=== PATIENT | male | born 1940 | race Caucasian/White ===

== ENCOUNTER 2020-04-04 15:24 | Inpatient (IN) | payer MEDICARE, OTHER ==
[~2020-04-04] VITALS: Ht 160 cm; Wt 64.5 kg
[2020-04-04 15:49] LABS: BASOPHILS ABSOLUTE AUTO 0.05 K/mm3 (0.00-0.23); BASOPHILS PERCENT AUTO 0 % (0-2); EOSINOPHILS ABSOLUTE AUTO 0.04 K/mm3 (0.00-0.68); EOSINOPHILS PERCENT AUTO 0 % (0-6); Hematocrit 39.1 % (37.0-53.0); Hemoglobin 12.9 g/dL (13.5-17.5); IMMATURE GRAN ABSOLUTE AUTO 0.13 K/mm3 (0.00-0.10); IMMATURE GRAN PERCENT AUTO 1 % (0-1); LYMPHOCYTES ABSOLUTE AUTO 0.83 K/mm3 (0.84-5.20); LYMPHOCYTES PERCENT AUTO 5 % (21-46); MONOCYTES ABSOLUTE AUTO 1.18 K/mm3 (0.16-1.47); MONOCYTES PERCENT AUTO 7 % (4-13); Mean Corpuscular HGB 32.7 pg (26.0-34.0); Mean Corpuscular Volume 99 fL (80-100); Mean Platelet Volume 10.9 fL (9.1-12.4); NEUTROPHILS ABSOLUTE AUTO 15.22 K/mm3 (1.96-9.15); NEUTROPHILS PERCENT AUTO 87 % (41-73); Platelet Count 370 K/mm3 (150-400); RDW Coefficient Variation 13.2 % (11.7-14.2); RDW Standard Deviation 47.6 fL (35.1-46.3); Red Blood Cell Count 3.94 M/mm3 (4.30-5.90); White Blood Cell Count 17.45 K/mm3 (4.00-11.30)
[2020-04-04 16:14] LABS: Alanine Aminotransfer (ALT/SGP 33 U/L (12-78); Albumin, Blood 2.4 g/dL (3.4-5.0); Albumin/Globulin Ratio 0.5 (0.8-1.8); Alk Phos 168 U/L (50-136); Anion Gap 9 mmol/L (6-16); Aspartate Aminotrans (AST/SGOT 126 U/L (12-37); Bilirubin, Total 1.2 mg/dL (0.1-1.0); Blood Urea Nitrogen 11 mg/dL (8-24); Bun/Creatinine Ratio 12.5 (12.0-20.0); CO2, Blood 22 mmol/L (21-32); Calcium, Blood 8.2 mg/dL (8.5-10.1); Chloride, Blood 101 mmol/L (98-108); Creatinine, Blood 0.88 mg/dL (0.60-1.20); Glomerular Filtration Rate >60 (60-); Glucose, Blood 130 mg/dL (70-99); Potassium, Blood 4.3 mmol/L (3.5-5.5); Sodium, Blood 132 mmol/L (136-145); Total Protein, Blood 7.4 g/dL (6.4-8.2)
[2020-04-04] MEDS ORDERED: IBUP200 PO (16:52)
[2020-04-04 19:54] LABS: International Normalized Ratio 1.09; Prothrombin Time Results 11.6 Sec (9.7-11.5)
[2020-04-04 19:57] LABS: CPK Creatine Kinase 296 U/L (39-308)
--- NOTE | 2020-04-04 21:30 | NUR ---
PT ADMITTED TO ROOM ICU 13 AT 2026. PT SLIDE TRANSFERRED TO BED FROM [facility]. PT HAS NO COMPLAINTS OF CHEST PAIN OR PRESSURE. DOES HAVE TACHYPNEIC RESPIRATIONS. OXYGEN ON AT 4 L/M. MAINTAINS > 90 PERCENT SATURATIONS. PT HAS MOIST COUGH AND WAS PROVIDED YAUNKEUR TO HELP SELF CLEAR. PT BEGINS ON HEPARIN DRIP PER PHARMACY. TEACHING DONE. WILL REVIEW CHART AND PLAN OF CARE FOR THIS PT.
[2020-04-05 03:34] LABS: BASOPHILS ABSOLUTE AUTO 0.05 K/mm3 (0.00-0.23); BASOPHILS PERCENT AUTO 0 % (0-2); EOSINOPHILS ABSOLUTE AUTO 0.06 K/mm3 (0.00-0.68); EOSINOPHILS PERCENT AUTO 0 % (0-6); Hematocrit 37.1 % (37.0-53.0); IMMATURE GRAN ABSOLUTE AUTO 0.12 K/mm3 (0.00-0.10); IMMATURE GRAN PERCENT AUTO 1 % (0-1); LYMPHOCYTES ABSOLUTE AUTO 1.35 K/mm3 (0.84-5.20); LYMPHOCYTES PERCENT AUTO 9 % (21-46); MONOCYTES PERCENT AUTO 8 % (4-13); Mean Corpuscular HGB Conc 32.3 g/dL (31.5-36.5); Mean Corpuscular Volume 99 fL (80-100); Mean Platelet Volume 10.7 fL (9.1-12.4); NEUTROPHILS ABSOLUTE AUTO 12.02 K/mm3 (1.96-9.15); NEUTROPHILS PERCENT AUTO 81 % (41-73); Platelet Count 298 K/mm3 (150-400); RDW Coefficient Variation 13.2 % (11.7-14.2); RDW Standard Deviation 47.4 fL (35.1-46.3); Red Blood Cell Count 3.75 M/mm3 (4.30-5.90)
[2020-04-05 03:54] LABS: Alanine Aminotransfer (ALT/SGP 34 U/L (12-78); Albumin, Blood 2.3 g/dL (3.4-5.0); Albumin/Globulin Ratio 0.5 (0.8-1.8); Alk Phos 157 U/L (50-136); Anion Gap 9 mmol/L (6-16); Aspartate Aminotrans (AST/SGOT 111 U/L (12-37); Blood Urea Nitrogen 13 mg/dL (8-24); Bun/Creatinine Ratio 12.7 (12.0-20.0); CO2, Blood 25 mmol/L (21-32); Calcium, Blood 8.2 mg/dL (8.5-10.1); Chloride, Blood 103 mmol/L (98-108); Creatinine, Blood 1.02 mg/dL (0.60-1.20); Globulin, Blood 4.5 g/dL (2.2-4.0); Glomerular Filtration Rate >60 (60-); Glucose, Blood 108 mg/dL (70-99); Potassium, Blood 3.8 mmol/L (3.5-5.5); Sodium, Blood 137 mmol/L (136-145); Total Protein, Blood 6.8 g/dL (6.4-8.2)
[2020-04-05 04:48] LABS: Troponin I 15.4 ng/mL (0.000-0.040)
--- NOTE | 2020-04-05 06:21 | NUR ---
PT CONTINUES WITHOUT COMPLAINTS OF CHEST PAIN OR PRESSURE. MAINTAINS > 90 PERCENT SATURATIONS ON 4 L/M. PT ABLE TO SELF CLEAR SECRETIONS WITH COUGH AND YAUNKEUR. PT DOES STATE THAT HE WAS HAVING VIVID 'VISIONS' WHEN HE CLOSED HIS EYES. THIS BEING OF A WATERWAY THAT HAD URIAS. PT STATES THAT HE HAS NEVER HAD THIS BEFORE. DENIES THAT IT CAUSED HIM TO BE AFRAID. HE CLAIMS THIS WAS VERY RELAXING. PT CONTINUES ON HEPARIN DRIP. NO S/S BLEEDING. WILL CONTINUE TO MONITOR PT AND WILL REPORT OFF TO ONCOMING RN.
--- NOTE | 2020-04-05 08:00 | NUR ---
ASSUMED CARE OF PT AT 0700. DURING SHIFT CHANGE PT REPORTED NEW 4/10 DULL ACHE TO LEFT CHEST WHEN HE AWOKE THIS MORNING. DR COPELAND WAS NOTIFIED AND EVALED PT AT BEDSIDE. VITALS STABLE AT TIME OF CHESTPAIN, NO ACUTE CHANGES TO MONITOR. SINUS RHYTHM WITH OCCASSIONAL PVC'S. PT REMAINS ON 4L OF O2 VIA NC, DYSPNEA WITH EXERTION. HEPARIN GTT INFUSING PER PHARMACY DOSING.
--- NOTE | 2020-04-05 12:56 | NUR ---
ECHOCARDIOGRAM COMPLETE
--- NOTE | 2020-04-05 16:30 | NUR ---
REASSESSMENT TR BAND FULLY DEFLATED, NO CHANGE IN INITIAL BRUISE TO RIGHT RADIAL SITE. PT CONTINUES TO REPORT NO CHANGE TO DULL CHEST PAIN /10. HEPARIN GTT ON PER PHARMACY DOSING. VITALS HAVE BEEN STABLE. PT REPORTS FEELING DEPRESSED AND "THERE'S NOTHING TO GO HOME TO". PT HAS EXPRESSED TO STAFF THAT IS AND ALCHOLIC AND UNSUPPORTIVE. CASE MANAGEMENT NOTIFIED OF HOME CARE CONCERNS. PT REMAINS ON 4L NC. VITALS HAVE REMAINED STABLE. SINUS RHYTHM ON THE MONITOR.
--- NOTE | 2020-04-05 17:00 | NUR ---
PT HAD 6 BEAT RUN OF V-TACH. PT REPORTED ADDITIONAL CHEST DISCOMFORT WITH RUN. IN ADDITION PT IS HAVING FREQ MULTI FOCAL PVC'S. PT REPORTS CHEST PAIN 3/10, MORE SUBSTERNAL THAN LEFT CHEST CURRENTLY. DR COPELAND NOTIFIED OF CLOTH WIRE WEAVER CHANGES. ORDERS RECEIVED FOR STAT LABS AND MEDS. MONITOR SHOWS SINUS TACH WITH FREQ MULTI FOCAL PVC'S RATE 102. BP AFTER VTACH 105/73.
[2020-04-05 17:30] LABS: Magnesium, Blood 1.3 mg/dL (1.6-2.4)
[2020-04-05 17:38] LABS: Potassium, Blood 2.5 mmol/L (3.5-5.5)
--- NOTE | 2020-04-05 18:31 | NUR ---
SHIFT SUMMARY PT IS ALERT AND ORIENTEDx4, REPORTS FEELING DEPRESSED AND "THERE'S NO REASON TO LIVE ON. I DON'T HAVE A GOOD HOME". PT CONTINUES TO HAVE 2-3 LEFT CHEST PAIN. RECENT LABS SHOWED LOW POTASSIUM AND MAGNESIUM, CURRENTLY BEING REPLACED. MONITOR SHOWS SINUS RHTYHM WITH FREQ MULTI-FOCAL PVC'S. VITALS STABLE. RIGHT RADAIL SITE SOFT/C/D/I, ARM BOARD IN PLACE. PT CONTINUES TO BE ON 4L NC TO MAINTAIN SPO2 >92%. PT INDEPENDANTLY USING URINAL AND APPROPRIATELY DIURISING. VITALS HAVE REMAINED STABLE.
--- NOTE | 2020-04-05 20:00 | NUR ---
ASSUMED CARE OF PT AT 1915. REPORT RECEIVED AT BEDSIDE. PT PRESENTS IN BED. SOMEWHAT ANXIOUS. SELF SUCTIONS SECRETIONS THAT HE EXPECTORATES. CLEAR SECRETIONS NOTED. PT REMAINS ON 4 L/M OXYGEN PER NASAL CANNULA. SATURATIONS 87-91 %. PT CONTINUES WITH VOIDS Q.S. ON DIURETIC THERAPY. NO COMPLAINTS OF CHEST PAIN OR PRESSURE. WILL REVIEW CHART AND PLAN OF CARE FOR THIS PT.
--- NOTE | 2020-04-05 23:44 | NUR ---
TWO PHONE CALLS PLACED TO DR BLAKE FOR PT FEELING VERY RESTLESS, AND ANXIOUS. ONE TIME ATIVAN PO ORDER RECEIVED. FOLLOWUP CALL CONCERNING PERSISTANT COUGH LEADING TO DESATURATIONS IN 804-85 PERCENT. ORDER FOR ROBITUSSIN, AND TESSALON PERRLES. ADMINISTERED 10 ML ROBITUSSIN. THIS HAS GREATLY HELPED WITH COUGH. HAVE ALSO CHANGED PT TO HIGH FLOW CANNULA AT 10 L/M. PT SATURATIONS REMAIN > 90 PERCENT WITH THIS. WILL TITRATE DOWN ABLE. MUCH REASSURANCE GIVEN TO PT. TEACHING DONE ON CARDIAC FINDINGS FROM ANGIOGRAM THIS AM. MEDICATIONS AND DISEASE PROCESS. WILL CONTINUE TO MONITOR PT.
[2020-04-06 02:15] LABS: Anion Gap 8 mmol/L (6-16); Blood Urea Nitrogen 22 mg/dL (8-24); Bun/Creatinine Ratio 19.8 (12.0-20.0); CO2, Blood 24 mmol/L (21-32); Calcium, Blood 7.9 mg/dL (8.5-10.1); Chloride, Blood 108 mmol/L (98-108); Creatinine, Blood 1.11 mg/dL (0.60-1.20); Glomerular Filtration Rate >60 (60-); Glucose, Blood 120 mg/dL (70-99); Potassium, Blood 4.4 mmol/L (3.5-5.5); Sodium, Blood 140 mmol/L (136-145)
--- NOTE | 2020-04-06 06:30 | NUR ---
AFTER PT HAS COUGHING JAG EARLIER IN EVENING, HE REQUIRES HIGHER FLOW OXYGEN. CHANGED PT TO HIGH FLOW NASAL CANNULA. WHEN ASLEEP, PT WOULD DESATURATE INTO MID 80 PERCENTS. FLOW UP TO 10 L/M AFFECTIVE. DID HAVE PT WEAR CPAP FOR A PERIOD DURING NIGHT. PT TOLERATES THIS WELL.
--- NOTE | 2020-04-06 07:50 | NUR ---
ASSUMED CARE RECEIVED REPORT FROM KEREN DORMAN. PT IS SITTING UP IN BED AWAKE, ALERT AND ORIENTED X 4, HOWEVER, STATES HE HAS BEEN SLIGHTLY CONFUSED THIS MORNING - HAVING WEIRD DREAMS AND INITIALLY FORGOT WHERE HE WAS - BUT HAS SINCE REMEMBERED. HE IS ON A HEPARIN GTTP AT 17 UNITS/KG/HOUR WITH 67 KG FOR THE WEIGHT -- THIS WAS VERIFIED WITH THE ORDER AND WITH KEREN DORAMN. PT FAIRLY INDEPENDENT IN BED, REPOSITIONING SELF. HIGH FLOW NC AT 11L WITH SPO2 MID TO HIGH 90s WILL REASSESS NEED FOR OXYGEN WHEN POSSIBLE.
--- NOTE | 2020-04-06 11:29 | NUR ---
UPDATE PT SLEEPING AFTER EATING BREAKFAST. 4L NC, SPO2 LOW TO MID 90s%. VOIDING IN URINAL INDEPENDENTLY. NO MAJOR CHANGES. DAUGHTER CALLED AND WAS CONCERNED ABOUT HER FATHER, PRIMARILY ABOUT HIS DISCHARGE, AND SHE REALLY DOES NOT WANT HIM TO GO HOME WITH HIS (HER MOM). THIS RN SPENT SOME TIME DISCUSSING WITH HER THE NATURE OF HER FATHERS ILLNESS, AND THAT HE WILL NEED MORE TIME IN THE HOSPITAL, BECAUSE HE IS STILL ON OXYGEN, ON A HEPARIN GTTP, RECEIVING IV LASIX WITH CRACKLES REMAINING IN THE LUNGS, AND IS VERY WEAK. IT WAS ALSO DISCUSSED THAT IS IS POSSIBLE HE MAY REQUIRE A SNF UPON DISCHARGE. ALTAGRACIA WAS THANKFUL FOR THAT INFORMATION. 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
--- NOTE | 2020-04-06 19:30 | NUR ---
END OF SHIFT NO MAJOR UPDATES SINCE LAST NOTE. PT IS ON 4L NC, SPO2 96% AND HAS BEEN DENYING SOB AT REST, WITH EXERTION OR LAYING FLAT THE PT DOES BECOME DYSPNEIC, AND SPO2 CAN DROP TO MID ~80s%. HE HAS DENNIED CHEST PAIN ALL DAY. CONTINUES TO COUGH UP THICK, WHITE/CLEAR, AND SOMETIMES PINK TINGED SPUTUM. HAS BEEN ALERT AND ORIENTED X 4 ALL DAY. DID NOT WANNA GET UP IN THE CHAIR TODAY. PT, OT, AND ST WERE ORDERED TODAY. PT IS CONCERNED ABOUT GOING HOME AFTER DISCHARGE. HE REPORTS BEING SCARED TO GO HOME TO HIS . 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 HE IS VERY WEAK AND WILL MOST LIKELY REQUIRE A LOT OF PHYSICAL THERAPY. THIS WAS PASSED ON TO THE NOC RN TO REPORT TO THE DAY RN TOMORROW AND/OR PALLIATIVE CARE (WHICH WAS CONSULTED THIS AM). THE DAUGHTER CALLED TODAY, AND AFTER BEING UPDATED REPORTED THAT THIS WAS A BIG CONCERN FOR HER, WELL HER BROTHER AND DAD. BED IS LOW AND LOCKED. CALL LIGHT WITHIN REACH.
[2020-04-07 05:08] LABS: BASOPHILS ABSOLUTE AUTO 0.07 K/mm3 (0.00-0.23); BASOPHILS PERCENT AUTO 1 % (0-2); EOSINOPHILS ABSOLUTE AUTO 0.41 K/mm3 (0.00-0.68); EOSINOPHILS PERCENT AUTO 3 % (0-6); Hematocrit 35.8 % (37.0-53.0); Hemoglobin 11.7 g/dL (13.5-17.5); IMMATURE GRAN ABSOLUTE AUTO 0.17 K/mm3 (0.00-0.10); IMMATURE GRAN PERCENT AUTO 1 % (0-1); LYMPHOCYTES ABSOLUTE AUTO 1.75 K/mm3 (0.84-5.20); LYMPHOCYTES PERCENT AUTO 12 % (21-46); MONOCYTES ABSOLUTE AUTO 0.95 K/mm3 (0.16-1.47); MONOCYTES PERCENT AUTO 7 % (4-13); Mean Corpuscular HGB 32.7 pg (26.0-34.0); Mean Corpuscular HGB Conc 32.7 g/dL (31.5-36.5); Mean Corpuscular Volume 100 fL (80-100); Mean Platelet Volume 10.5 fL (9.1-12.4); NEUTROPHILS ABSOLUTE AUTO 11.04 K/mm3 (1.96-9.15); NEUTROPHILS PERCENT AUTO 77 % (41-73); Platelet Count 311 K/mm3 (150-400); RDW Coefficient Variation 13.5 % (11.7-14.2); RDW Standard Deviation 49.2 fL (35.1-46.3); Red Blood Cell Count 3.58 M/mm3 (4.30-5.90); White Blood Cell Count 14.39 K/mm3 (4.00-11.30)
[2020-04-07 05:22] LABS: Bun/Creatinine Ratio 19.5 (12.0-20.0); Calcium, Blood 8.1 mg/dL (8.5-10.1); Creatinine, Blood 1.23 mg/dL (0.60-1.20); Potassium, Blood 3.9 mmol/L (3.5-5.5)
--- NOTE | 2020-04-07 05:40 | NUR ---
SHIFT SUMMARY PATIENT ALERT AND ORIENTED. HAD NO COMPLAINTS OF CHEST PAIN OR PRESSURE. PATIENT EDUCATED ON USE OF INCENTIVE SPIROMETER AND FLUTTER VALVE, HAD PATIENT DEMONSTRATE. REINFORCEMENT OF TEACHING AND ENCOURAGEMENT OF USE WILL BE NEEDED. PATIENT ON CPAP OVERNIGHT WITH O2 BLEED IN RANGING BETWEEN 8 AND 13 LITERS, DEPENDING ON HIS ACTIVITY LEVEL. CURRENTLY AWAKE AND ON 5 LITERS O2 VIA NASAL CANULA SATING BETWEEN 93 AND 96%. IVS PATENT AND INFUSING. BED IN LOWEST POSITION WITH WHEELS LOCKED. CALL LIGHT WITHIN REACH. REPORT GIVEN TO ONCOMING RN.
--- NOTE | 2020-04-07 07:32 | NUR ---
PT RESTING IN BED ON 5L O2. NSR WITH BBB ON TELE. DENIES NEEDS OR CONCERNS. RADIAL SITE WITH NO REBLEED PER NIGHT RN. DR HESTER HERE TO SEE PT AT THIS TIME.
--- NOTE | 2020-04-07 16:46 | NUR ---
PT WORKED WITH PHYSICAL THERAPY AND EXPRESSED TO THEM CONCERNS ABOUT GOING HOME. STATED HE WANTED TO . RN ENTERED ROOM AND DISCUSSED THIS WITH PT. PT STATES DRINKS AND IS VERBALLY ABUSIVE. STATES HE DOES NOT WANT TO GO BACK HOME. WHEN ASKED IF HE WANTED TO HE SAID YES. HE POINTED TO HIS DNR YVETTE AND SAID "IF I'M DYING, LET IT HAPPEN." WHEN ASKED IF HE HAD THOUGHTS OF KILLING HIMSELF HE SAID YES AND THAT HE GAVE WHATEVER MEANS AT HOME THAT HE HAD TO OTHER FAMILY MEMBERS SO HE WOULD NOT BE TEMPTED. ASKED PT WHAT WOULD HE DO IF THE OPPORTUNITY AROSE FOR HIM TO KILL HIMSELF OR SOMEONE ELSE TO KILL HIM AND HE SAID "I WOULDN'T STOP IT FROM HAPPENING." ASKED PT IF HE HAD A PLAN, HE SAID NO. DENIED CURRENT THOUGHTS OF HARMING HIMSELF. CALL TO DR HESTER WHO PLACED PSYCH CONSULT BUT FEELS PT IS DEEPLY DEPRESSED BUT DOES NOT FEEL THAT SUICIDE RISK ORDERS ARE NEEDED AT THIS TIME. ASSEMBLER CONVERTIBLE TOP AWARE. PT AWARE THAT PSYCH HAS BEEN CONSULTED AND PT IS AGREEABLE TO THIS.
--- NOTE | 2020-04-07 18:06 | NUR ---
SHIFT SUMMARY: PT WORKED WITH PT/OT/ST THIS SHIFT. DR HESTER AWARE THAT VENDING TECHNICIAN NEEDED DUE TO PT HAVING SUICIDAL THOUGHTS AND DEPRESSION FROM LIVING SITUATION. LOGISTICS MANAGER AWARE OF PT'S COMMENTS WELL. PT ON 4-6L TODAY FOR SOB WITH EXERTION. NO ACUTE NEEDS OR CONCERNS AT THIS TIME.
--- NOTE | 2020-04-07 21:13 | NUR ---
REPORT GIVEN TO SANTOSH RN PCU. PT TO TRANSFER TO PCU 6.
--- NOTE | 2020-04-07 21:30 | NUR ---
PT TRANSFERRED TO PCU, CARE OF KEREN FROST.
--- NOTE | 2020-04-07 21:57 | NUR ---
CARE ASSUMPTION PT BROUGHT TO PCU FROM ICU VIA ICU BED AT APPROX 2230. PT WAS SLID FROM ICU BED TO PCU BED BY 4 STAFF. VSS. SP02>92% ON 6L HIFLO NC. PT HAS PRODUCTIVE COUGH, PRODUCING THICK, WHITE PHLEM. PT STATES HE HAS TRIED HIS INCENTIVE SPRIOMETER AND PICKLE DEVICES TODAY. PT STATES HE DOES NOT WANT TO WEAR CPAP TONIGHT D/T IT "BEING TOO LOUD AND BLOWING TOO HARD OF AIR." TELEMETRY READS SR, HR 80'S. PT DENIED CP AND ANY KIND OF PAIN. PT HAS R RADIAL SITE FROM PREVIOUS PROCEDURE. DRESSING CHANGED UPON ARRIVAL, ARM BOARD IN PLACE. ABX INFUSING PER EMAR. PT ORIENTED TO ROOM, CALL LIGHT IN REACH. BED IN LOWEST POSITION.
--- NOTE | 2020-04-08 04:12 | NUR ---
WERNER KEEPS TALKING ABOUT SUICIDE. SAYS HE WANTS CLOTHES SO HE CAN GO SOME WHERE AND . THAT HE JUST TIRED OF IT ALL AND WANTS TO JUST END IT ALL.VERY DEPRESSED
[2020-04-08 05:12] LABS: BASOPHILS ABSOLUTE AUTO 0.08 K/mm3 (0.00-0.23); BASOPHILS PERCENT AUTO 1 % (0-2); EOSINOPHILS ABSOLUTE AUTO 0.46 K/mm3 (0.00-0.68); EOSINOPHILS PERCENT AUTO 4 % (0-6); Hematocrit 37.7 % (37.0-53.0); Hemoglobin 12.3 g/dL (13.5-17.5); IMMATURE GRAN ABSOLUTE AUTO 0.17 K/mm3 (0.00-0.10); IMMATURE GRAN PERCENT AUTO 1 % (0-1); LYMPHOCYTES ABSOLUTE AUTO 1.56 K/mm3 (0.84-5.20); LYMPHOCYTES PERCENT AUTO 12 % (21-46); MONOCYTES ABSOLUTE AUTO 0.92 K/mm3 (0.16-1.47); MONOCYTES PERCENT AUTO 7 % (4-13); Mean Corpuscular HGB 32.5 pg (26.0-34.0); Mean Corpuscular HGB Conc 32.6 g/dL (31.5-36.5); Mean Corpuscular Volume 100 fL (80-100); Mean Platelet Volume 10.6 fL (9.1-12.4); NEUTROPHILS ABSOLUTE AUTO 9.45 K/mm3 (1.96-9.15); NEUTROPHILS PERCENT AUTO 75 % (41-73); NRBC ABSOLUTE 0.02 K/mm3 (0.00-0.02); NRBC Auto 0.2 /100 WBC (0.0-0.2); Platelet Count 308 K/mm3 (150-400); RDW Coefficient Variation 13.5 % (11.7-14.2); RDW Standard Deviation 48.9 fL (35.1-46.3); Red Blood Cell Count 3.79 M/mm3 (4.30-5.90); White Blood Cell Count 12.64 K/mm3 (4.00-11.30)
[2020-04-08 05:36] LABS: Bun/Creatinine Ratio 18.8 (12.0-20.0); Calcium, Blood 8.1 mg/dL (8.5-10.1); Creatinine, Blood 1.28 mg/dL (0.60-1.20); Potassium, Blood 3.6 mmol/L (3.5-5.5)
--- NOTE | 2020-04-08 05:52 | NUR ---
SHIFT SUMMARY NO ACUTE CHANGES THIS SHIFT. PT A&OX4. VSS. SP02>90% ON 6L HIFLO NC. PT HAS PRODUCTIVE COUGH, FILLING MULTIPLE KLEENEX WITH THICK WHITE SPUTUM. PT ATTEMPTED TO WEAR CPAP DURING NIGHT AFTER RESPRIATORY THERAPY ADJUSTED SETTINGS, BUT DECIDED IT WAS TOO DIFFICULT WITH THE SPUTUM HE WAS COUGHING UP. PT WORE NC MAJORITY OF NIGHT. PT DENIED PAIN. PT USED URINAL AT BEDSIDE. ABX INFUSED PER EMAR. PT STATED HE DOES NOT WANT TO GO HOME. PT STATES, "IM GOING TO SELL MY HALF OF THE HOUSE TO SOMEONE ELSE AND MOVE INTO A HOTEL. THAT WILL SHOW HER ()." PT USES CALL LIGHT APPROPRIATELY. CALL LIGHTIN REACH. WILL GIVE REPORT TO ONCOMING NURSE.
--- NOTE | 2020-04-08 07:28 | NUR ---
ASSUMED CARE: PT RESTING IN BED, AWAKE, TALKING TO STAFF. 6L O2 VIA NC. NSR WITH BBB AT 82 ON TELE. NO ACUTE NEEDS OR CONCERNS AT THIS TIME.
--- NOTE | 2020-04-08 09:14 | NUR ---
SPOKE WITH RN NAVIGATOR AND DR DEL ROSARIO THIS AM REGARDING PT'S CLAIMS OF BEING VERBALLY ABUSIVE AND PT BEING SUICIADAL IF HE GOES BACK HOME. PT ALSO TOLD DR HESTER THAT HIS SON'S TREATS HIM THE WAY HIS OWN DOES. KEREN MITCHELLWARRANT CLERK STATES SHE WILL FOLLOW UP WITH PT'S SON ABOUT LIVING SITUATION AND PT'S CLAIMS. ASKED IF REPORT TO APS HAS BEEN DONE OR NEEDS TO BE DONE AND SHE STATES SHE WILL INVESTIGATE FURTHER AND KEEP THIS RN INFORMED ON FINDING. WILL FOLLOW UP
--- NOTE | 2020-04-08 10:13 | NUR ---
Patient gave me permission to help care for him on 04/08/2020 at 0845.
--- NOTE | 2020-04-08 13:40 | NUR ---
SPOKE WITH DC GAS REGULATOR REPAIRER STEPHEN WHO STATES SHE SPOKE WITH PT'S SON. PT'S SON PLANNING ON SETTING UP PT'S ROOM AT HOME SO HE HAS HIS OWN SPACE. THIS RN EXPRESSED TO STEPHEN THAT PT IN ON 4-6L O2 WHICH IS HIS BASELINE AND THAT PT HAS IMPLIED BEING SUICIDAL IF HE GOES BACK HOME. STEPHEN STATES SHE WILL BE CALLING APS TO SEE IF ANY FURTHER RESOURCES MAY BE AVAILABLE TO PT. AUDITING CONTROL CLERK AWARE WELL.
--- NOTE | 2020-04-08 17:48 | NUR ---
SHIFT SUMMARY: AWAITING DR SOLIZ CONSULT. CALL TO WHO STATES HE WILL SEE PT THIS SHIFT. DIRECTORY OPERATOR AWARE. PT'S DAUGHTER IS AT BEDSIDE AT THIS TIME. PT REMAINS ON 4-6L O2 VIA NC. APPEARS DEPRESSED AND NOT VERY MOTIVATED TO PARTICIPATE IN ACTIVITY. AWAITING PSYCH FOR FURTHER RECOMMENDATIONS DUE TO APS STATING THERE IS NOT MUCH THEY CAN DO FOR PT AT THIS TIME.
--- NOTE | 2020-04-08 19:07 | NUR ---
DR SOLIZ CAME TO SEE PT AND WAS MADE AWARE THAT PT WAS MAKING REMARKS TO MULTIPLE STAFF THAT HE MAY ATTEMPT SUICIDE IF HE HAS TO GO BACK HOME WITH HIS . DR SOLIZ THEN ASKED HIM IF HIS SON SETTING UP HIS ROOM SO HE HAD HIS OWN SPACE WOULD HELP AND HE SAID HE THOUGHT IT WOULD. DR OFFERED ANTIDEPRESSANT THAT PT DECLINED.
--- NOTE | 2020-04-08 19:36 | NUR ---
PT UPDATE DR SOLIZ IN TO SEE PT. SPOKE WITH PT ABOUT HOW PT IS FEELING. AFTER MD SOLIZ LEFT, PT ASKED THIS RN TO CALL HIM. PT STATES HE "HAD A FLASH BACK ABOUT HOW GOOD I USED TO FEEL" (WHEN HE WAS ON ANTIDEPRESSANT). CALL PLACED TO MD SOLIZ. MD SOLIZ WITH ORDERS FOR REMERON, QHS, SEE EMAR.
--- NOTE | 2020-04-09 05:17 | NUR ---
SHIFT SUMMARY PT A&OX4. SP02>92% ON 5L NC. PT FOUND WITH NC OFF MULTIPLE TIMES DURING SHIFT, WOULD DESAT TO AROUND 85%, NC REPLACED AND SATS IMPROVED TO >92%. PT REFUSED TO WEAR CPAP WHILE SLEEPING. TELEMETRY READS SR W/ BBB, HR 70'S. PT DID HAVE A 12 BET RUN OF VTACH DURING SHIFT, SEE STRIP IN CHART. PT DENIED PAIN. Q2H REPOSITIONING. PT USED URINAL AT BEDSIDE AND UP TO BSC TO HAVE LARGE BROWN BM THIS AM. PT C/O HE COULDN'T SLEEP DURING NIGHT. TOSSED AND TURNED. CALL LIGHT IN REACH. BED IN LOWEST POSITION.
[2020-04-09 09:27] LABS: Bun/Creatinine Ratio 16.5 (12.0-20.0); Calcium, Blood 8.5 mg/dL (8.5-10.1); Creatinine, Blood 1.33 mg/dL (0.60-1.20); Potassium, Blood 3.2 mmol/L (3.5-5.5)
--- NOTE | 2020-04-09 10:17 | NUR ---
MORNING UPDATE PT WAS AWAKE AND PARTICIPATED IN REPORT THIS MORNING. PT STATED HE WAS SO COLD, HE FELT FREEZING HE WAS GIVEN A HEAT PAD AND WAS THEN ABLE TO FOCUS ON TAKING MEDICATIONS AND PARTICIPATING IN MY ASSESSMENT. PT WAS ABLE TO TAKE MORNING MEDICATIONS, 1 PILL AT A TIME WITH WATER. PT HAS NOW BEEN STATUS CHANGED TO MED WITH NO TELE. VS STABLE, PT ON 5L NC. ANGIO RIGHT RADIAL SITE IS WNL, ARM BOARD IN PLACE, TEGADERM DRESSING C/D/I
--- NOTE | 2020-04-09 17:35 | NUR ---
SHIFT SUMMARY PT HAS BEEN AWAKE AND ENGAGED WITH STAFF THROUGHOUT THE DAY. VS STABLE, PT REMAINS ON 4L O2 VIA NC TO MAINTAIN SAT ABOVE 90%. PT WORKED WITH PHYSICAL THERAPY AND SPENT PART OF THE DAY IN THE CHAIR. PT HAS MENTIONED SEVERAL TIMES THAT HE DOES NOT WANT TO CONTINUE GOING ON, "I DON'T WANT TO DO ALL THE REHABILITATION, I DON'T HAVE THE ENERGY, I'M JUST DONE, I'M READY TO BE COMFORTABLE." PT HAS BEEN REFERRED TO PALLIATIVE CARE AND IS SPEAKING WITH HECTOR AT THIS TIME ALONG WITH HIS SON. PT IS OTHERWISE PLEASANT AND COOPERATIVE WITH CARE
--- NOTE | 2020-04-09 19:31 | NUR ---
Pt up eating dinner struggling with food tolerance, anxios repetative could not follow conversation. Stating he wants to just go home. Met with son who states recent decline in pt cognatively. State he is setting up the bedroom for the patient state home life is not pleasant. Hewould like placement reviewed potential barries of cost. Will see if he is a . Reviewed hospice support. Son will speak with family and come up with a plan.
--- NOTE | 2020-04-09 22:40 | NUR ---
ARRIVAL RECIEVED REPORT FROM MISHA VELIZ, PCU. ARRIVED TO MEDICAL FLOOR VIA BED @ 2240; STAYED IN SAME BED. APPEARS TO BE IN GOOD SPIRITS AND WITHOUT ANY NEEDS AT THIS TIME. ORIENTED TO ROOM AND CALL SYSTEM. CURRENTLY RUNNING IV ABX PER ORDERS WITHOUT COMPLICATION. BED IN LOWEST POSITION; ALARM ON. CALL LIGHT AND BELONGINGS WITHIN REACH. CONTINUE WITH CURRENT PLAN OF CARE.
--- NOTE | 2020-04-09 22:54 | NUR ---
PATIENT A&O, CAN BE FORGETFUL AT TIMES AND IS [place]. 1 PERSON ASSIST TO BSC, AND REPOSITIONING IN BED. MEDICATIONS GIVEN ONE AT A TIME WITH WATER, NO STRAW. RIGHT RADIAL SITE, NO BLEEDING, GOOD CIRCULATION AND COLOR, PATIENT REPORTED SLIGHT NUMBNES IN HIS FINGERS, PATIENT WEARING SPLINT. PATIENT REPORTED BEING COLD, PROVIDED SEVERAL WARM BLANKETS. 02 SATS >90% ON 7L NC. VSS, NO ACUTE CHANGES. REPORT GIVEN TO TIM VELIZ, PATIENT TRANSFERED TO MEDICAL FLOOR @3058.
--- NOTE | 2020-04-09 23:52 | NUR ---
AGREEABLE WITH ASSESSMENTS DONE BY LEAD MACHINISTKEREN CABRAL. NOTHING NEW TO ADD AT THIS TIME.
--- NOTE | 2020-04-10 04:53 | NUR ---
SHIFT SUMMARY A/O, ABLE TO MAKE NEEDS KNOWN. DISPLAYS MOMENTS OF FORGETFULNESS. [place]. COOPERATIVE WITH CARE. CALLS AND ANSWERS QUESTIONS APPROPRIATELY. C/O DISCOMFORT TO BACK; GIVEN HEATING PAD FOR COMFORT, STATES ADEQUATE RELIEF. APPEARED TO REST MUCH OF SHIFT, ON 7L O2 VIA NC WITH HUMIDIFICATION; ON CONT BIOX. SATURATIONS >90%. RESPIRATIONS EVEN WITH EQUAL RISE/FALL. HYPOTENSIVE THIS AM. WILL RE-CHECK. BED REMAINS IN LOWEST POSITION; ALARM ON. CALL LIGHT AND BELONGINGS WITHIN REACH. COTNINUE WITH CURRENT PLAN OF CARE. REPORT TO ONCOMING RN.
[2020-04-10 05:58] LABS: Bun/Creatinine Ratio 15.5 (12.0-20.0); Calcium, Blood 8.4 mg/dL (8.5-10.1); Creatinine, Blood 1.68 mg/dL (0.60-1.20); Potassium, Blood 3.5 mmol/L (3.5-5.5)
--- NOTE | 2020-04-10 11:06 | NUR ---
DR. HESTER REQUESTED NURSING BLADDER SCAN PT X1. PATIENT VOIDED 200 ML, BLADDER SCAN SHOWED 200 ML PVR. REPORTED TO DR. HESTER BY PHONE.
--- NOTE | 2020-04-10 11:10 | NUR ---
Pt resting in bed upon arrival. Pt is A&OX2/3. Pt unable to verbalize appropriate place of stay. Pt responds giving answer of 2021 when asked about current year. Pt is able to give appropriate reason for hospital stay. Pt reports wanting to be discharged from the hospital. Spoke with Bedside RN Kamilah and discussed case. Pt showing decline and is requiring 6 L O2. Reviewed chart including Palliative Care RN's note from 04/09/20. Family considering options including hospice. Called and spoke with Pt's son Michael. Offered supportive conversation with Michael reporting that he is still processing information. Instructed Michael to call Palliative Care with any questions or concerns. Plan: Will F/U when family arrives to visit.
--- NOTE | 2020-04-10 18:28 | NUR ---
SHIFT SUMMARY: NO ACUTE EVENTS. OXYGEN TITRATED DOWN TO 5 L/MIN NC WITH O2 SAT 92-94%. DENIED PAIN. UP IN CHAIR THIS AFTERNOON. TOLERATING PO INTAKE. PARTICIPATING IN THERAPY. HAD VISIT FROM SON AND DAUGHTER TODAY.
[2020-04-11 05:13] LABS: Calcium, Blood 8.1 mg/dL (8.5-10.1); Creatinine, Blood 1.6 mg/dL (0.60-1.20); Potassium, Blood 3.2 mmol/L (3.5-5.5)
--- NOTE | 2020-04-11 05:50 | NUR ---
SHIFT SUMMARY ALERT, ABLE TO MAKE NEEDS KNOWN. COOPERATIVE WITH CARE. CALLS AND ANSWERS QUESTIONS APPROPRIATELY. NO C/O PAIN/DISCOMFORT. APPEARED TO REST OFF AND ON OVERNIGHT. IV ABX RECIEVED PER ORDERS WITHOUT COMPLICATIONS; CONTINUES WITH IV FLUIDS LR @ 75 ML/HR. INCREASED O2 NEEDS OVERNIGHT; HAD A COUPLE OF COUGHING SPELLS. 6L VIA NC THIS AM; POTENTIAL WEAN DURING THE DAY. SPO2 REMAINS >90%. HYPOTENSIVE THIS AM. BED REMAINS IN LOWEST POSITION; CALL LIGHT WITHIN REACH. CONTINUE WITH CURRENT PLAN OF CARE. REPORT TO ONCOMING RN.
--- NOTE | 2020-04-11 18:45 | NUR ---
SHIFT SUMMARY: NO ACUTE EVENTS. DENIED PAIN. OXYGEN TITRATED DOWN TO 1 L/MIN NC WITH SATURATIONS 91-93%, PRODUCTIVE COUGH WITH SMALL AMOUNTS WHITE SPUTUM. IVF COMPLETE. TOLERATING PO INTAKE, HAD BM TODAY. UP IN CHAIR FOR SEVERAL HOURS TODAY, WORKED WITH THERAPY. HAD VISIT FROM SON TODAY.
--- NOTE | 2020-04-12 04:42 | NUR ---
SHIFT SUMMARY- PT. A&O, WITH INTERMITTENT CONFUSION. PLEASANT AND COOPERATIVE WITH CARE. ON 1L OF O2 PART OF THE NIGHT. PT. DESATS TO THE 80'S DURING THE NIGHT, INCREASED O2 TO 2.5L WITH MUCH IMPROVEMENT. PT. HAD NO COMPLAINTS T/O THE NIGHT, USES URINAL AT THE BEDSIDE W/O DIFFICULTY. VSS. CALL LIGHT WITHIN REACH, SIDE RAILS UPX2, AND BED ALARM ON FOR SAFETY. WILL CONT TO MONITOR.
[2020-04-12 08:14] LABS: Bun/Creatinine Ratio 12.8 (12.0-20.0); Creatinine, Blood 1.25 mg/dL (0.60-1.20); Potassium, Blood 3.7 mmol/L (3.5-5.5)
--- NOTE | 2020-04-12 17:37 | NUR ---
SHIFT SUMMARY PT AO; FORGETFUL AT TIMES. PT IS STILL RECEIVING ABX; PT SON CAME BY AND VISITED THE PT. PT WILL GO HOME WITH SON NEXT WEEK WITH HOME HEALTH PER . PT DENIES SOB; CP. PT IS ON 2L OF 02; SATS ABOVE 90S. PT USES BSC AND USES URINAL. BED ALARM IS ON AND CALL LIGHT WITHIN REACH
--- NOTE | 2020-04-13 04:09 | NUR ---
SHIFT SUMMARY- NO ACUTE EVENTS OVERNIGHT. PT. SLEPT MOST OF THE NIGHT, NO APPARENT DISTRESS NOTED. HAD NO COMPLAINTS OF PAIN OR DISCOMFORT DURING THEN NIGHT. REMAINS ON 2L NC AND CONT BIOX, VSS. CALL LIGHT WITHIN REACH AND SIDE RAILS UPX2. WILL CONT TO MONITOR.
--- NOTE | 2020-04-13 18:10 | NUR ---
SHIFT SUMMARY NO ACUTE CHANGES DURING THIS SHIFT. PT ALERT BUT CONFUSED AT TIMES. PT ENCOURAGED TO USE CALL LIGHT WHEN GETTING UP. WEAN O2 PER DR. PT IS ON 1.5L OF 02 SATS 90S. PT IS ON BED ALARM FOR SAFETY. PT C/O ABOUT THE VENT IN THE ROOM BLOWING AIR TO HIS FACE . ADJUSTED THE TEMPT IN THE ROOM BUT PT STILL IRRITABLE. PT DTR CAME BY TO VISIT THE PT. BED IS IN THE LOWEST POSITION AND CALL LIGHT WITHIN REACH.
--- NOTE | 2020-04-14 04:43 | NUR ---
SHIFT SUMMARY- PT. HAS BEEN ASLEEP MOST OF THE NIGHT, NO APPARENT DISTRESS NOTED. O2 AT 3L NC, INCREASED DURING THE DAY DUE TO REPORTS OF PT DESATING. SATS HAVE BEEN AT 95-96% THIS SHIFT. PT. DENIED ANY PAIN OR DISCOMFORT, USES URINAL AT BEDSIDE WITH ASSISTANCE. PLAN FOR POSS D/C TODAY, VSS. CALL LIGHT WITHIN REACH, SIDE RAILS UPX2, AND BED ALARM ON. WILL CONT TO MONITOR.
[2020-04-14 05:41] LABS: Bun/Creatinine Ratio 8.1 (12.0-20.0); Calcium, Blood 8.2 mg/dL (8.5-10.1); Creatinine, Blood 1.24 mg/dL (0.60-1.20); Potassium, Blood 3.6 mmol/L (3.5-5.5)
--- NOTE | 2020-04-14 19:36 | NUR ---
SHIFT SUMMARY JULISSA IS LOOKING FORWARD TO HOPEFULLY GOING HOME TOMORROW TO LIVE WITH HIS SON. SBA TO BR. HOME O2 EVAL DONE, NEEDS 4L OXYGEN WITH AMBULATION. ON 3 L OXYGEN. TOOK PILLS WITH APPLESAUCE W/O PROBLEMS. DENIED PAIN. HAD ONE BM. CALL [facility] IN REACH. REPORT GIVEN TO NIGHT NURSE
--- NOTE | 2020-04-15 06:43 | NUR ---
04/15/20 0600 AWAKENED FOR AM VITALS AND AM MEDS. DENIES ANY DISCOMFORT. IV ANTIBIOTICS IN EFFECT. O2 AT 3LPM VIA N/C. HE DOES GET SOB WITH ANY ACTIVITY. VITALS STABLE. UNEVENTFUL NIGHT.
--- NOTE | 2020-04-15 10:00 | NUR ---
SBP IS 95 IN RUE, 103 ADOLFO, CALLED DR HESTER TO DETERMINE IF SHE WANTED SPIRONOLACTONE OR LISINOPRIL GIVEN (NO PARAMETERS), SHE STATES SHE WANTS IT HELD.
--- NOTE | 2020-04-15 18:30 | NUR ---
SHIFT SUMMARY RAY HAD A CXR THIS SHIFT, AND DOCTORS WANTED TO KEEP HIM FOR ANOTHER DAY OR TWO, PT AND FAMILY AMMENABLE. PT SBA TO BR, CONTINENT. WALKED WITH PT IN HALLS. TOOK PILLS WITH APPLESAUCE. DENIED PAIN. SHERIE DELIVERED OXYGEN, IT IS AT THE BEDSIDE. CALL LIGHT IN REACH, [facility]
[2020-04-16 05:00] LABS: Anion Gap 7 mmol/L (6-16); Blood Urea Nitrogen 13 mg/dL (8-24); Bun/Creatinine Ratio 11.9 (12.0-20.0); CO2, Blood 25 mmol/L (21-32); Calcium, Blood 8.4 mg/dL (8.5-10.1); Chloride, Blood 106 mmol/L (98-108); Creatinine, Blood 1.09 mg/dL (0.60-1.20); Glomerular Filtration Rate >60 (60-); Glucose, Blood 104 mg/dL (70-99); Potassium, Blood 3.2 mmol/L (3.5-5.5); Sodium, Blood 138 mmol/L (136-145)
--- NOTE | 2020-04-16 07:40 | NUR ---
05/13/20 0530 SLEPT ON AND OFF THIS SHIFT. DENIES ANY DISCOMFORT. SOB NOTED WITH ACTIVITY. O2 REMAINS AT 3LPM VIA N/C. VOIDING IN URINAL. VITALS STABLE. UNEVENTFUL NIGHT.
--- NOTE | 2020-04-16 17:08 | NUR ---
SHIFT SUMMARY PT AMBULATED IN FLOOD WITH PHYSICAL THERAPY THIS SHIFT. PT HAS HAD NO COMPLAINTS OF PAIN. PT CONTINUES TO WEAR OXYGEN VIA NC. PT HAS A GOOD APPITITE. NO ACUTE CHANGES THIS SHIFT. PLANS FOR DISCHARGE TOMORROW. CALL LIGHT IN REACH. WILL MONITOR AND REPORT TO ONCOMING RN.
--- NOTE | 2020-04-17 04:48 | NUR ---
SHIFT SUMMARY PT HAD AN UNEVENTFUL NIGHT. SLEPT WELL THROUGH MUCH OF THE NIGHT. PT REMAINS ON 3 L VIA NC WITH O2 SATS IN THE MID 90'S. PT DENIES ANY SOB. PT COMPLIANT WITH FLUID RESTRICTION, STAYING WELL BELOW THE 1500 MLS ALLOWED. NO COMPLAINTS OF PAIN. NO ACUTE CHANGES THIS SHIFT. VITAL SIGNS STABLE. WILL CONTINUE TO MONITOR AND REPORT TO DAY RN.
[2020-04-17 05:22] LABS: Bun/Creatinine Ratio 10.9 (12.0-20.0); Calcium, Blood 8.6 mg/dL (8.5-10.1); Creatinine, Blood 1.84 mg/dL (0.60-1.20); Potassium, Blood 3.9 mmol/L (3.5-5.5)
[2020-04-17] MEDS ORDERED: ALBU2.5V5 INH (12:58)
[2020-04-17] MEDS ORDERED: ASPI81CH PO (12:59)
[2020-04-17] MEDS ORDERED: ATOR80 PO (12:59)
[2020-04-17] MEDS ORDERED: MIRT15 PO (13:00)
[2020-04-17] MEDS ORDERED: METO25ER PO (13:00)
[2020-04-17] MEDS ORDERED: CLOP75 PO (13:00)
[2020-04-17] MEDS ORDERED: LISI5 PO (13:00)
[2020-04-17] MEDS ORDERED: SPIR25 PO (13:01)
[2020-04-17] MEDS ORDERED: TORSE20 PO (13:01)
[2020-04-17] MEDS ORDERED: PANT40 PO (13:01)
[2020-04-17] MEDS ORDERED: Isosorbide Mono30 MG PO (13:01)
--- NOTE | 2020-04-17 16:11 | NUR ---
DISCHARGE THIS RN EXPLAINED DISCHARGE INSTRUCTIONS AND MEDICATIONS TO PT AND HE AND PT'S SON REPORTS THEY UNDERSTAND. IV REMOVED WITHOUT DIFFICULTY. PT HAS NO PRIMARY PHYSICIAN-THIS RN GAVE PT PACKET TO FILL OUT AND BO RAHMAN, [employer] MANAGEMENT SPECIALIST AWARE THAT PT NEEDS A PRIMARY. PT TRANSFERRED TO PRIVATE VEHICLE VIA WHEELCHAIR. BELONGINGS WITH PT AND PT'S SON.
== END 2020-04-17 16:01 | disposition home health service (06) | DRG 871 ==
LOC: ER 15:24 → ICUW 19:33 → PCU 04-07 21:15 → MEDS 04-09 22:36
PROVIDERS: Family Medicine; Internal Medicine; Internal Medicine Cardiovascular Disease; Pharmacist; Physician Assistant; ADMIT Internal Medicine
PROC: B2111ZZ Fluoroscopy of Multiple Coronary Arteries using Low Osmolar Contrast (ICD-10-PCS; principal; 2020-04-05)
PROC: 4A023N7 Measurement of Cardiac Sampling and Pressure, Left Heart, Percutaneous Approach (ICD-10-PCS; 2020-04-05)
DX: A41.9 Sepsis, unspecified organism (principal); I21.4 Non-ST elevation (NSTEMI) myocardial infarction; J96.01 Acute respiratory failure with hypoxia; J18.9 Pneumonia, unspecified organism; G92 Toxic encephalopathy; I50.21 Acute systolic (congestive) heart failure; R45.851 Suicidal ideations; N17.9 Acute kidney failure, unspecified; Z51.5 Encounter for palliative care; Z87.891 Personal history of nicotine dependence; Z95.5 Presence of coronary angioplasty implant and graft; Z66 Do not resuscitate; Z20.822 Contact with and (suspected) exposure to COVID-19; I25.10 Atherosclerotic heart disease of native coronary artery without angina pectoris; J44.9 Chronic obstructive pulmonary disease, unspecified; I25.5 Ischemic cardiomyopathy; E87.6 Hypokalemia; Z79.01 Long term (current) use of anticoagulants; F34.1 Dysthymic disorder; G30.9 Alzheimer's disease, unspecified; F02.80 Dementia in other diseases classified elsewhere, unspecified severity, without behavioral disturbance, psychotic disturbance, mood disturbance, and anxiety; R65.20 Severe sepsis without septic shock
CPT/HCPCS: 36415; 71045; 71046; 71275; 74175; 80048; 80053; 82550; 83605; 83735; 83880; 84132; 84145; 84443; 84484; 85025; 85379; 85610; 85730; 92610; 93005; 93010; 93306; 93458; 94640; 94660; 94667; 94761; 94762; 96365-59; 96366; 96367-59; 97110; 97116; 97161; 97165; 97530; 97535; 99152; 99153; 99285-25; A9270; C1769; C1894; J0456; J0696; J1644; J1650; J1940; J2250; J2543; J3010; J3370; J3475; J7030; J7040; J7050; J7120; Q9967

== ENCOUNTER 2022-08-07 21:09 | Inpatient (IN) | payer OTHER ==
[~2022-08-07] VITALS: Ht 162.6 cm; Wt 69.6 kg
[~2022-08-07 21:09] MED LIST: ALBU2.5V5 INH; ASPI81CH PO; ATOR20 PO; CLOP75 PO; IBUP200 PO; Isosorbide Mono30 MG PO; LISI5 PO; METO25ER PO; MIRT15 PO; PANT40 PO; SPIR25 PO; TORSE20 PO
[2022-08-07 21:33] LABS: BASOPHILS ABSOLUTE AUTO 0.05 K/mm3 (0.00-0.23); BASOPHILS PERCENT AUTO 0 % (0-2); EOSINOPHILS PERCENT AUTO 1 % (0-6); Hematocrit 34.6 % (37.0-53.0); Hemoglobin 12.8 g/dL (13.5-17.5); IMMATURE GRAN ABSOLUTE AUTO 0.17 K/mm3 (0.00-0.10); IMMATURE GRAN PERCENT AUTO 1 % (0-1); LYMPHOCYTES ABSOLUTE AUTO 1.28 K/mm3 (0.84-5.20); LYMPHOCYTES PERCENT AUTO 10 % (21-46); MONOCYTES ABSOLUTE AUTO 1.24 K/mm3 (0.16-1.47); MONOCYTES PERCENT AUTO 10 % (4-13); Mean Corpuscular HGB 36.1 pg (26.0-34.0); Mean Corpuscular Volume 98 fL (80-100); Mean Platelet Volume 9.8 fL (9.1-12.4); NEUTROPHILS ABSOLUTE AUTO 9.47 K/mm3 (1.96-9.15); NEUTROPHILS PERCENT AUTO 77 % (41-73); NRBC ABSOLUTE 0.04 K/mm3 (0.00-0.02); NRBC Auto 0.3 /100 WBC (0.0-0.2); Platelet Count 148 K/mm3 (150-400); RDW Coefficient Variation 12.2 % (11.7-14.2); RDW Standard Deviation 43.1 fL (35.1-46.3); Red Blood Cell Count 3.55 M/mm3 (4.30-5.90); White Blood Cell Count 12.31 K/mm3 (4.00-11.30)
[2022-08-07 22:06] LABS: Bilirubin, Total 0.6 mg/dL (0.1-1.0); Bun/Creatinine Ratio 17.8 (12.0-20.0); Calcium, Blood 7.9 mg/dL (8.5-10.1); Creatinine, Blood 0.96 mg/dL (0.60-1.20); Potassium, Blood 3.4 mmol/L (3.5-5.5)
[2022-08-07 22:17] LABS: Source, Urine Voided
[2022-08-07 22:25] LABS: Appearance, Urine Clear (Clear); Bilirubin, Urine Neg (Neg); Blood, Urine 2+ (Neg); Color, Urine Yellow (P-Yellow); Glucose Qualitative, Urine Neg (Neg); Ketones, Urine Neg (Neg); Leukocyte Esterase, Urine Neg (Neg); Nitrite, Urine Neg (Neg); Protein, Urine Neg (Neg); Urobilinogen, Urine NORM (Normal)
[2022-08-07 22:33] LABS: Bacteria Few /hpf; Red Blood Cells, Urine 0-2 /hpf (0-2); Squamous Epithelial Cells Few /hpf (Few); White Blood Cells, Urine 0-2 /hpf (0-5)
[2022-08-08] VITALS (20 sets, daily range): BP systolic 97–126; BP diastolic 45–96
--- NOTE | 2022-08-08 02:00 | NUR ---
3% SALINE COMPLETE, NS AT 125 ML/HR STARTED. ASSISTED PT WITH URINAL.
[2022-08-08 02:38] LABS: Bun/Creatinine Ratio 14.4 (12.0-20.0); Calcium, Blood 7.4 mg/dL (8.5-10.1); Creatinine, Blood 1.04 mg/dL (0.60-1.20); Potassium, Blood 3.5 mmol/L (3.5-5.5)
[2022-08-08 04:40] LABS: Bun/Creatinine Ratio 12.4 (12.0-20.0); Calcium, Blood 7.6 mg/dL (8.5-10.1); Creatinine, Blood 1.05 mg/dL (0.60-1.20); Potassium, Blood 3.8 mmol/L (3.5-5.5)
[2022-08-08 06:01] LABS: Bun/Creatinine Ratio 12.6 (12.0-20.0); Calcium, Blood 7.7 mg/dL (8.5-10.1); Creatinine, Blood 1.03 mg/dL (0.60-1.20); Potassium, Blood 3.8 mmol/L (3.5-5.5)
--- NOTE | 2022-08-08 07:00 | NUR ---
ASSUMPTION OF CARE HE IS RECEIVING NS 125ML/HR. PT IS AWAKE IN BED, A&OX3. HE ANSWERS QUESTIONS BUT APPEARS TO BE A POOR HISTORIAN REGARDING PAST MEDICAL HISTORY. HE IS ON 2L NC WITH SPO2 >95%. PT HAS PRODUCTIVE COUGH THAT "HAS BEEN GOING ON FOR A LONG TIME". LUNGS ARE COARSE, DIMINISHED IN BASES. PT REPORTS SOB WITH EXCERTION. SINUS RHTYHM ON MONITOR WITH RATE 50S-60S. SBP 110S-120S. PT DENIES CP. HE REMAINS NPO STATUS AT THIS TIME. ABDOMEN SOFT, NONTENDER. PT REPORTS DECREASED APPETITE FOR A FEW MONTHS AND PT HAS DIFFICULTY MAKING MEALS AT HOME. PT HAS URINARY URGENCY AND INCREASED FREQUENCY AND USES THE URINAL TO VOID. BED IN LOW POSITION AND CALL LIGHT WITHIN REACH. SEE SHIFT ASSESSMENT.
[2022-08-08 08:08] LABS: Bun/Creatinine Ratio 12.3 (12.0-20.0); Calcium, Blood 7.6 mg/dL (8.5-10.1); Creatinine, Blood 0.98 mg/dL (0.60-1.20)
[2022-08-08 10:42] LABS: Bun/Creatinine Ratio 10.7 (12.0-20.0); Calcium, Blood 7.5 mg/dL (8.5-10.1); Creatinine, Blood 1.03 mg/dL (0.60-1.20); Potassium, Blood 3.5 mmol/L (3.5-5.5)
--- NOTE | 2022-08-08 12:20 | NUR ---
UPDATE PT REMAINS A&OX3 WITH PLEASANT AFFECT. HE IS FORGETFUL AT TIMES BUT EASILY REDIRECTABLE. HE IS ON RA WITH SPO2 >92%. HE CONTINUES TO HAVE A PRODUCTIVE COUGH, SAMPLE SENT TO LAB. PT REPORTS DECREASED APPETITE LATELY. HE DID EAT A JELLO AND PUDDING. TOLERATING WATER WELL. PT REPORTS MILD GI UPSET AND THINKS IT MAY BE CONSTIPATION. STOOL SOFTENER GIVEN. PT CONTINUES TO USE URINAL NEEDED. PT REPORTS LIVING AT HOME WITH SIGNIFICANT OTHER. HE STS SHE STRUGGLES WITH ALCOHOL ABUSE AND IS AWAKE ALL NIGHT YELLING. PT REPORTS HE HAS POOR SLEEP PATTERNS DUE TO THIS. HE ALSO STS HE HAS DIFFICULTY OBTAINING FOOD AND COOKING FOOD, AND SIGNIFICANT OTHER DOES NOT COOK. SON AND DAUGHTER UPDATED ON PT CONDITION. PLAN FOR PT TO TRANSITION TO MEDICAL FLOOR.
[2022-08-08 12:25] LABS: Bun/Creatinine Ratio 10.6 (12.0-20.0); Calcium, Blood 7.8 mg/dL (8.5-10.1); Creatinine, Blood 1.13 mg/dL (0.60-1.20); Potassium, Blood 3.8 mmol/L (3.5-5.5)
--- NOTE | 2022-08-08 18:05 | NUR ---
SHIFT SUMMARY/TRANSFER NOTE PT AxOx3 WITH OCCASIONAL MILD CONFUSION. PT IS PLEASANT AND COOPERATIVE WITH CARE, BUT SOMETIMES IMPULSIVE AND JUMPS OUT OF BED WITHOUT CALLING. PT DOES WELL WITH A FWW AND SBA. PT WAS TRANSFERRED FROM ICU AT APPROX 1248. REPORT RECEIVED FROM KERNE ISIDRO. DWAINE'S SHIFT ASSESSMENT MATCHES MY ASSESSMENT UPON PT'S ARRIVAL. PT REPORTS POOR APPETITE. TELE CALLED THIS AFTERNOON TO REPORT ST ELEVATION. PROVIDER ORDERED STAT EKG, ECHO, IV LASIX AND TROPONIN LABS. PT DENIED ANY CHEST PAIN/PRESSURE OR SOB. PT CURRENTLY SITTING ON SIDE OF BED EATING DINNER. CALL LIGHT IN REACH. BED ALARM ON FOR SAFETY. PT DENIES ANY NEEDS AT THIS TIME.
[2022-08-09 04:47] LABS: BASOPHILS ABSOLUTE AUTO 0.04 K/mm3 (0.00-0.23); BASOPHILS PERCENT AUTO 0 % (0-2); EOSINOPHILS PERCENT AUTO 2 % (0-6); Hematocrit 37.8 % (37.0-53.0); Hemoglobin 13.6 g/dL (13.5-17.5); IMMATURE GRAN PERCENT AUTO 1 % (0-1); LYMPHOCYTES PERCENT AUTO 13 % (21-46); MONOCYTES ABSOLUTE AUTO 0.93 K/mm3 (0.16-1.47); MONOCYTES PERCENT AUTO 10 % (4-13); Mean Corpuscular HGB 35.6 pg (26.0-34.0); Mean Corpuscular Volume 99 fL (80-100); Mean Platelet Volume 10.4 fL (9.1-12.4); NEUTROPHILS ABSOLUTE AUTO 7.24 K/mm3 (1.96-9.15); NEUTROPHILS PERCENT AUTO 74 % (41-73); NRBC ABSOLUTE 0.03 K/mm3 (0.00-0.02); NRBC Auto 0.3 /100 WBC (0.0-0.2); Platelet Count 163 K/mm3 (150-400); RDW Coefficient Variation 12.8 % (11.7-14.2); RDW Standard Deviation 45.3 fL (35.1-46.3); Red Blood Cell Count 3.82 M/mm3 (4.30-5.90); White Blood Cell Count 9.81 K/mm3 (4.00-11.30)
[2022-08-09 05:09] LABS: Calcium, Blood 8.6 mg/dL (8.5-10.1); Creatinine, Blood 1.25 mg/dL (0.60-1.20); Potassium, Blood 3.6 mmol/L (3.5-5.5)
[2022-08-09 05:27] VITALS: BP 112/72
--- NOTE | 2022-08-09 05:31 | NUR ---
PT HAD 2 RUNS OF VTACH (9 AND 12 BEATS) DURING NIGHT, PT ASYMPTOMATIC. HR SINUS 70'S PER TELE MONITOR. SATS >90% ON RA, PT DENIED SOB. COUGH MORE PRODUCTIVE. PT C/O RIB PAIN R/T COUGHING, TYLENOL GIVEN W/SOME RELIEF. PT UP TO VOID FREQ DURING NIGHT, URINE LIGHT YELLOW HTIS AM (WAS COLORLESS AT START OF SHIFT). PT FORGETFULAT TIMES DURING NIGHT, REORIENTED EASILY, BED ALARM ON FOR SAFETY. IV ABX CONT PER EMAR.
[2022-08-09 07:42] VITALS: BP 128/74
[2022-08-09 15:50] VITALS: BP 115/78
--- NOTE | 2022-08-09 16:19 | NUR ---
SHIFT SUMMARY PT HAS CONTINUED TO DO WELL T/O SHIFT. PT CALLING APPROPRIATLY FOR ASSISTANCE AND IS ABLE TO MAKE ALL NEEDS KNOWN. PT HAS VOIDED FREQUENTLY T/O SHIFT. URINE IS PALE YELLOW IN COLOR, APPEARS DARKER THIS AFTERNOON COMPARED TO AM. HAS HAD NO C/O PAIN OTHER THAN EYES TEAR UP WHEN LOOKING INTO BRIGHT LIGHT/SUN. SALINE LOCKED OTHER THAN FOR IV ABX.
[2022-08-09 20:01] VITALS: BP 144/96
[2022-08-10 03:10] VITALS: BP 128/59
--- NOTE | 2022-08-10 05:54 | NUR ---
SHIFT SUMMARY 82 YR M ADMITTED ON 08/08/22 FOR HYPONATREMIA/ROMINA LL PNA. FULL CODE. NO ACUTE CHANGES THIS SHIFT. PT IS PLEASANT AND COOPERATIVE WITH CARE AND HAS HAD NO C/O PAIN OR DISCOMFORT THIS SHIFT. PT WAS HEARD CUSSING IN FRUSTRATION SEVERAL TIMES THIS SHIFT BUT WHEN ASKED IF SOMETHING WAS WRONG HE WOULD SAY NO. HE USES THE CALL LIGHT AND URINAL INDEPENDANTLY BUT EXPRESSED CONCERN ABOUT BEING ABLE TO MAKE IT TO THE BATHROOM ON TIME IF HE NEEDED TO HAVE A BOWEL MOVEMENT. HOWEVER, HE DID NOT HAVE A BM THIS SHIFT. HE WAS ABLE TO SWALLOW HIS PILLS W/O DIFFICULTY AND USED APPLESAUCE TO "WASH" THEM DOWN.
[2022-08-10 07:13] VITALS: BP 136/85
[2022-08-10 09:54] VITALS: BP 135/74
[2022-08-10 09:58] LABS: Bun/Creatinine Ratio 11.8 (12.0-20.0); Creatinine, Blood 1.1 mg/dL (0.60-1.20); Potassium, Blood 3.1 mmol/L (3.5-5.5)
[2022-08-10 14:46] VITALS: BP 140/87
--- NOTE | 2022-08-10 18:13 | NUR ---
SHIFT SUMMARY- PT ALERT AND ORIENTED TO SELF AND FAMILY. HE HAS BEEN MORE FORGETFUL ABOUT WHERE HE IS THIS EVENING. HIS DAUGHTER CALLED FOR AN UPDATE AND STATED SHE WILL BE IN TO SEE HIM TOMORROW. PT GAVE VERBAL PERMISSION FOR STAFF TO SPEAK WITH HER ABOUT HIS MEDICAL CARE NEEDS. CALLED DR HOPKINS THIS MORNING ABOUT THE PT LAB RESULTS, SODIUM IS BACK DOWN TO 120. MD AWARE MED CHANGES (SEE EMAR FOR DETAILS). PT IS CURRENTLY IN BEDCALL LIGHT IN REACH, TELE ON, HEATING PAD ON AND SET TO 100. NO CURRENT S&S OF DISTRESS NOTED. WILL PASS ON TO NIGHT RN IN BEDSIDE REPORT.
[2022-08-11] VITALS: BP 119/76
--- NOTE | 2022-08-11 00:31 | NUR ---
HOME CONCERNS PT WOKE IN A PANIC, ANXIETY. HE REPORTS NOT WANTING TO RETURN HOME R/T LIVING SITUATIONS W/ HOME AND . PT REPORTS HOME IS NOT SAFE OR LIVABLE. DISCUSSED W/ PT ELECTRICAL ENGINEERING DIRECTOR AND RESOURCES THEY MAY HAVE TO ASSIST HIM WITH HIS CONCERNS. V/U BY PT.
--- NOTE | 2022-08-11 03:44 | NUR ---
SNACK PT WOKE REQUESTING CRACKERS. PT SITTING AT EDGE OF BED HAVING SALTINE CRACKERS AND ROOT BEER.
--- NOTE | 2022-08-11 03:59 | NUR ---
V-TACH NOTIFIED BY ROOM MAID OF 5 RUN OF V-TACH, PT NON SYMPTOMATIC, DENIES CP, SOB, DIZZINESS. HOSPITALIST NOTIFIED OF EVENT.
[2022-08-11 04:53] LABS: BASOPHILS ABSOLUTE AUTO 0.03 K/mm3 (0.00-0.23); BASOPHILS PERCENT AUTO 0 % (0-2); EOSINOPHILS ABSOLUTE AUTO 0.23 K/mm3 (0.00-0.68); EOSINOPHILS PERCENT AUTO 2 % (0-6); Hematocrit 38.5 % (37.0-53.0); IMMATURE GRAN ABSOLUTE AUTO 0.19 K/mm3 (0.00-0.10); IMMATURE GRAN PERCENT AUTO 2 % (0-1); LYMPHOCYTES ABSOLUTE AUTO 1.45 K/mm3 (0.84-5.20); LYMPHOCYTES PERCENT AUTO 13 % (21-46); MONOCYTES ABSOLUTE AUTO 1.26 K/mm3 (0.16-1.47); MONOCYTES PERCENT AUTO 12 % (4-13); Mean Corpuscular HGB 35.8 pg (26.0-34.0); Mean Corpuscular HGB Conc 36.4 g/dL (31.5-36.5); Mean Corpuscular Volume 99 fL (80-100); Mean Platelet Volume 10.3 fL (9.1-12.4); NEUTROPHILS ABSOLUTE AUTO 7.68 K/mm3 (1.96-9.15); NEUTROPHILS PERCENT AUTO 71 % (41-73); NRBC ABSOLUTE 0.05 K/mm3 (0.00-0.02); NRBC Auto 0.5 /100 WBC (0.0-0.2); Platelet Count 178 K/mm3 (150-400); RDW Coefficient Variation 12.6 % (11.7-14.2); RDW Standard Deviation 44.7 fL (35.1-46.3); Red Blood Cell Count 3.91 M/mm3 (4.30-5.90); White Blood Cell Count 10.84 K/mm3 (4.00-11.30)
[2022-08-11 04:55] VITALS: BP 119/77
[2022-08-11 05:33] LABS: Bun/Creatinine Ratio 9.6 (12.0-20.0); Calcium, Blood 7.9 mg/dL (8.5-10.1); Creatinine, Blood 1.14 mg/dL (0.60-1.20); Magnesium, Blood 1.6 mg/dL (1.6-2.4); Potassium, Blood 3.8 mmol/L (3.5-5.5)
--- NOTE | 2022-08-11 06:14 | NUR ---
SHIFT SUMMARY PT ADMIT FOR HYPONATREMIA, INCREASED CONFUSION, BL PNEUM, AND SEPSIS. ALERTX4 BUT FORGETFUL OF LIMITATIONS W/ BATHROOM URGENCY. TELE IN PLACE, SR @61 W/ 1ST DEGREE HEART BLOCK. PER SHERIFFS DETECTIVE, 5-RUN V-TACH AT 0400. PT NON-SYMPTOMATIC AND DENIES CP, DIZZINESS, OR SOB. HOSPITALIST NOTIFIED. PT UP TO BATHROOM SEVERAL TIMES T/O NIGHT W/ ASSISTANCE R/T WEAKNESS AND BALANCE ISSUES. NEW IV STARTED IN LEFT FA, PT REPORTS HE DOES NOT WANT TO RETURN HOME R/T BEING UNSAFE AND NON LIVEABLE. SOCIAL SERVICE CONSULT EVAL ORDERED. DISCUSSED REHAB PLACEMENT AND PT VERY INTERESTED. POSSIBLE DC TODAY.
[2022-08-11 07:14] VITALS: BP 139/89
--- NOTE | 2022-08-11 10:15 | NUR ---
BEHAVIOR PT INSISTING THAT HE NEEDS TO WALK AROUND WITH HIS PENIS HANGING OUT TO "AIR DRY." PT EDUCATED THAT HE NEEDS TO PULL HIS PANTS UP WITH LADIES IN THE ROOM. PT REPLY," MY HASN'T TENDED TO MY MANULY NEEDS FOR 40 YEARS." CONTINUE POC.
--- NOTE | 2022-08-11 11:07 | NUR ---
DR HOPKINS DISCUSSED PLAN OF CARE. REPORTED POST VOID BLADDER SCAN VOLUME. REPORTED MASON LINER INTERVIEW THIS MORNING. CONTINUE POC.
--- NOTE | 2022-08-11 16:58 | NUR ---
SHIFT NOTE PT ALERT. FREQUENT CLIMBING OOB WITHOUT ASSIST. BED ALARM ON. TALKED WITH SON/DAUGHTER. THEY DON'T HAVE FREQUENT CONTACT WITH HIM OR THEIR MOM. SON RELATED THAT MOM IS AN ALCOHOLIC. THEY DID STATE THAT DAD IS DEPRESSED AND ISOLATED. REALTED PT SEXUAL BEHAVIOR TOWARDS THE STAFF. SON WASN'T SURPRISED. DAUGHTER STEPPED BACK, CROSSED HER ARMS, LOOKED AT THE FLOOR AND STATED," I DON'T KNOW ANYTHING ABOUT THAT." RELATED THAT A CONSULT FOR DR SOLIZ HAS BEEN REQUESTED. SON LEFT IMMEDIATELY. DAUGHTER STAYED AT BEDSIDE. KNOW THAT DAUGHTER WAS HERE PT WAS ABLE TO REMEMBER TO USE THE CALL LIGHT INSTEAD OF JUMPING OOB NOW THAT HE HAD UNDIVIDED ATTENTION. STAFF CONTINUE TO ENCOURAGE HIS INDEPENDNET SELF CARE. HE IS ABLE TO WIPE HIMSELF, CHANGE HIS PULL UP AND US THE URINAL BY HIMSELF. HE NO LONGER NEEDS STAFF TO HELP HIM. CONTINUE POC.
[2022-08-11 17:02] VITALS: BP 123/72
[2022-08-11 20:22] VITALS: BP 103/56
[2022-08-12 04:13] VITALS: BP 123/73
--- NOTE | 2022-08-12 04:43 | NUR ---
0445 TELETECH CALLED AND STATED PT HAD A 13 BEAT OF V TACH. PT ASSESSED AND NO ISSUES NOTED. PT DENIES CX PAIN OR SOB.
[2022-08-12 05:46] LABS: Bun/Creatinine Ratio 10.7 (12.0-20.0); Calcium, Blood 8.2 mg/dL (8.5-10.1); Creatinine, Blood 1.21 mg/dL (0.60-1.20); Potassium, Blood 4.3 mmol/L (3.5-5.5)
--- NOTE | 2022-08-12 06:13 | NUR ---
SHIFT SUMMARY NO NEW ISSUES. PT HAS HAD NOTED BM'S AND VOIDING WELL. PT HAS BEEN PLESANT FOR THIS RN. PT MAY RESPOND BETTER WITH MALE CAREGIVERS. PT HAD REPORTED RUN OF V-TACH. PT DENIES ANY ISSUES. PT HAS SLEPT FOR MOST OF SHIFT. PT HAS BEEN RELAXED AND COOPERATIVE. CALL LIGHT IN REACH AND BED ALARM ON.
[2022-08-12 08:04] VITALS: BP 150/92
[2022-08-12 15:20] VITALS: BP 126/80
--- NOTE | 2022-08-12 17:58 | NUR ---
SHIFT SUMMARY PT A&O2-3/FORGETFULNESS INC THIS EVENING BUT PT HAS BEEN CALLING APPROPRIATELY AND ANSWERING QUESTIONS APPROPRIATELY T/O SHIFT. VSS/RA, EDI PO. VOIDING/BS 266 MLS, AMB FWW/GB SBA TO BRP, REPOSITIONS SELF IN BED AND SITS ON SIDE OF BED INDEPENDENTLY, DENIES PAIN/SOB, TELE NSR PVC BBB @ 75 BPM. WILL REPORT TO ONCOMING NOC RN.
[2022-08-12 19:13] VITALS: BP 126/79
--- NOTE | 2022-08-13 04:50 | NUR ---
SHIFT SUMMARY VSS. TELE READS SR 64. PT SLEPT ON AND OFF T/O THE NIGHT. UP TO THE BATHROOM FREQUENTLY TO HAVE SMALL BM'S. PT NOTED TO BECOME MORE IRRITABLE THE NIGHT PROGRESSED BUT WAS REDIRECTABLE AND COOPERATIVE WITH CARE. NO ACUTE EVENTS NOTED, PLAN FOR PT TO D/C TO SNF. THE PATIENT IS CURRENTLY SLEEPIN, IN NO DISTRESS, CALL LIGHT IN REACH
[2022-08-13 04:59] VITALS: BP 101/72
[2022-08-13 08:00] VITALS: BP 117/78
[2022-08-13 09:22] LABS: Bun/Creatinine Ratio 15.3 (12.0-20.0); Calcium, Blood 7.8 mg/dL (8.5-10.1); Creatinine, Blood 1.37 mg/dL (0.60-1.20); Potassium, Blood 3.8 mmol/L (3.5-5.5)
[2022-08-13 10:07] VITALS: BP 112/61
[2022-08-13 15:45] VITALS: BP 102/58
--- NOTE | 2022-08-13 18:00 | NUR ---
ST ELEVATION: [employer] YUMIKO CALLED THIS RN AT 10:15 REPORTING THAT PT WAS HAVING [address] ELEVATION. ROUNDED ON PT, PT WAS ASLEEP. VSS AND PT DENIED CP/PRESSURE. DR. HOPKINS NOTIFIED, EKG ORDERED AND COMPLETED BY MARIA ISABEL. NO NEW ORDERS AT THIS TIME.
--- NOTE | 2022-08-13 18:07 | NUR ---
SUMMARY: NO ACUTE CHANGE THIS SHIFT. PT VSS, A/O, FORGETFUL AT TIMES BUT USES CALL LIGHT. PT UP TO THE BATHROOM FREQUENTLY FOR VOIDS AND HAS HAD MULTIPLE LOOSE STOOLS. SAMPLE FOR CDIFF SENT. NO COMPLAINT OF SOB OR DIZZINESS TODAY. AMBULATES WELL WITH SBA AND WALKER. RECEIVING PO SODIUM CHLORIDE, SODIUM LOW TODAY. NO ACUTE SAFETY CONCERNS, HOURLY ROUNDING COMPLETED WITH FIRE IGNITION SAFETY EDUCATION. WILL PASS REPORT TO NATALIA VELIZ.
[2022-08-13 19:28] VITALS: BP 117/65
[2022-08-14 04:38] VITALS: BP 111/68
[2022-08-14 04:56] LABS: BASOPHILS ABSOLUTE AUTO 0.12 K/mm3 (0.00-0.23); BASOPHILS PERCENT AUTO 1 % (0-2); EOSINOPHILS ABSOLUTE AUTO 0.29 K/mm3 (0.00-0.68); EOSINOPHILS PERCENT AUTO 3 % (0-6); Hematocrit 39.9 % (37.0-53.0); Hemoglobin 14.1 g/dL (13.5-17.5); IMMATURE GRAN ABSOLUTE AUTO 0.48 K/mm3 (0.00-0.10); IMMATURE GRAN PERCENT AUTO 4 % (0-1); LYMPHOCYTES ABSOLUTE AUTO 2.29 K/mm3 (0.84-5.20); LYMPHOCYTES PERCENT AUTO 20 % (21-46); MONOCYTES ABSOLUTE AUTO 1.02 K/mm3 (0.16-1.47); MONOCYTES PERCENT AUTO 9 % (4-13); Mean Corpuscular HGB 35.6 pg (26.0-34.0); Mean Corpuscular HGB Conc 35.3 g/dL (31.5-36.5); Mean Corpuscular Volume 101 fL (80-100); NEUTROPHILS ABSOLUTE AUTO 7.37 K/mm3 (1.96-9.15); NEUTROPHILS PERCENT AUTO 64 % (41-73); NRBC ABSOLUTE 0.03 K/mm3 (0.00-0.02); NRBC Auto 0.3 /100 WBC (0.0-0.2); Platelet Count 208 K/mm3 (150-400); RDW Coefficient Variation 13.2 % (11.7-14.2); RDW Standard Deviation 47.9 fL (35.1-46.3); Red Blood Cell Count 3.96 M/mm3 (4.30-5.90); White Blood Cell Count 11.57 K/mm3 (4.00-11.30)
[2022-08-14 05:09] LABS: Bun/Creatinine Ratio 15.6 (12.0-20.0); Calcium, Blood 8.1 mg/dL (8.5-10.1); Creatinine, Blood 1.47 mg/dL (0.60-1.20); Potassium, Blood 4.3 mmol/L (3.5-5.5)
--- NOTE | 2022-08-14 05:55 | NUR ---
SHIFT SUMMARY PT IS A&O4, SB WITH FWW TO BR, RA, NO COMPLAINTS OF PAIN OR DISCOMFORT OVERNIGHT, HOURLY ROUNDING FIRE IGNITION EDUCATION PROVIDED CONTINUE POC
[2022-08-14 07:27] VITALS: BP 118/79
[2022-08-14 12:30] LABS: C DIFFICILE DNA POSITIVE (Negative)
[2022-08-14 15:59] VITALS: BP 141/73
--- NOTE | 2022-08-14 18:12 | NUR ---
SHIFT SUMMARY: NO ACUTE EVENTS. MULTIPLE RESULTS FROM C DIFF SPECIMEN SENT YESTERDAY, SO PLACED ON ISOLATION A PRECAUTION. NO EVENTS ON TELE, SR 70'S. DENIED PAIN. TOLERATING PO INTAKE. 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 GETTING UP TO BR WITH SBA AND FWW. HAD BEEN ACCEPTED TO [facility], BUT INSURANCE DENIED STAY. NO FURTHER EPISODES OF DIARRHEA, STOOL BEGINNING TO FIRM UP.
[2022-08-14 21:10] VITALS: BP 112/65
[2022-08-15 04:51] LABS: Hematocrit 39.7 % (37.0-53.0); Mean Corpuscular HGB 36.3 pg (26.0-34.0); Mean Corpuscular HGB Conc 35.3 g/dL (31.5-36.5); Mean Corpuscular Volume 103 fL (80-100); Mean Platelet Volume 10.1 fL (9.1-12.4); NRBC ABSOLUTE 0.02 K/mm3 (0.00-0.02); NRBC Auto 0.2 /100 WBC (0.0-0.2); Platelet Count 192 K/mm3 (150-400); RDW Coefficient Variation 13.4 % (11.7-14.2); RDW Standard Deviation 50.2 fL (35.1-46.3); Red Blood Cell Count 3.86 M/mm3 (4.30-5.90); White Blood Cell Count 10.33 K/mm3 (4.00-11.30)
[2022-08-15 05:07] LABS: Bun/Creatinine Ratio 16.5 (12.0-20.0); Calcium, Blood 8.2 mg/dL (8.5-10.1); Creatinine, Blood 1.33 mg/dL (0.60-1.20); Potassium, Blood 4.3 mmol/L (3.5-5.5)
[2022-08-15 06:33] VITALS: BP 130/79
[2022-08-15 07:30] VITALS: BP 125/76
[2022-08-15] MEDS ORDERED: BUME1 PO (12:25)
[2022-08-15] MEDS ORDERED: METO25ER PO (12:25)
[2022-08-15] MEDS ORDERED: LISI5 PO (12:26)
[2022-08-15] MEDS ORDERED: MIRT30 PO (12:26)
[2022-08-15] MEDS ORDERED: TAMS.4ER PO (12:26)
--- NOTE | 2022-08-15 14:00 | NUR ---
PATIENT EDUCATED ABOUT NOT HAVING ANY ITEM THAT CAN BE USED TO START A FIRE (SURGICAL ASSIST, MATCHES, CIGARETTES, FIREWORKS, ETC). PATIENT STATED HE DOES NOT SMOKE AND HAS NONE OF THOSE ITEMS IN HIS POSSESSION, DOES NOT WEAR OXYGEN. VERBALIZED UNDERSTANDING OF SAME.
--- NOTE | 2022-08-15 15:59 | NUR ---
PATIENT DISCHARGED TO HOME ACCOMPANIED BY HIS SON FLOR. IV SALINE LOCK AND TELEMETRY REMOVED WITHOUT INCIDENT. VERBALIZED UNDERSTANDING OF D/C INSTRUCTIONS. NEW RX FAXED TO [facility], WHICH IS CLOSED TODAY. PATEINT VERBALIZED UNDERSTANDING THAT HE NEEDS TO COMPLIANCE MGR MEDICATIONS TOMORROW. PATIENT AND HIS SON STATED THAT PT'S PANTS AND WALLET ARE MISSING. CALLED ICU RED CROSS WORKER, WHO CHECKED ICU ROOM 2 BUT DID NOT FIND ANY BELONGINGS. OFF UNIT VIA W/C AT 1520. NO PERSONAL BELONGINGS LEFT BEHIND IN ROOM.
== END 2022-08-15 15:10 | disposition home health service (06) | DRG 640 ==
LOC: ER 21:09 → ICUE 08-08 00:01 → MEDS 08-08 00:01 → ICUE 08-08 00:52 → MEDS 08-08 12:50 → ENPENDDIS 08-15 12:45 → MEDS 08-15 15:10
PROVIDERS: Family Medicine; Internal Medicine; Student in an Organized Health Care Education/Training Program; ADMIT Internal Medicine
DX: E87.1 Hypo-osmolality and hyponatremia (principal); I21.4 Non-ST elevation (NSTEMI) myocardial infarction; I50.23 Acute on chronic systolic (congestive) heart failure; J96.01 Acute respiratory failure with hypoxia; L02.11 Cutaneous abscess of neck; R45.851 Suicidal ideations; A04.72 Enterocolitis due to Clostridium difficile, not specified as recurrent; R31.29 Other microscopic hematuria; E87.6 Hypokalemia; F41.0 Panic disorder [episodic paroxysmal anxiety]; F32.A Depression, unspecified; R35.0 Frequency of micturition; D64.9 Anemia, unspecified; H91.90 Unspecified hearing loss, unspecified ear; I25.10 Atherosclerotic heart disease of native coronary artery without angina pectoris; D69.6 Thrombocytopenia, unspecified; I25.2 Old myocardial infarction; Z90.49 Acquired absence of other specified parts of digestive tract; Z95.5 Presence of coronary angioplasty implant and graft; Z87.891 Personal history of nicotine dependence; Z79.51 Long term (current) use of inhaled steroids; Z79.82 Long term (current) use of aspirin; Z79.02 Long term (current) use of antithrombotics/antiplatelets; Z79.811 Long term (current) use of aromatase inhibitors; Z99.81 Dependence on supplemental oxygen; Z79.899 Other long term (current) drug therapy
CPT/HCPCS: 36415; 71045; 71250; 80048; 80053; 81001; 83735; 83880; 83935; 84145; 84300; 84443; 84484; 85025; 85027; 87070; 87205; 87324; 87493; 92526; 92610; 93005; 93010; 93306; 94760; 96365; 96366; 96375; 97110; 97116; 97161; 97530; 99285-25; A9270; J0696; J1650; J1940; J2405; J3475; J7030; J7050